=== PATIENT | male | born 1955 | race Caucasian/White ===

== ENCOUNTER → 2016-08-10 | Outpatient (CLI) | payer BC ==
[~2016-08-10] MED LIST: ADVAIR 2501 DISK W/D PO; ALBUTEROL17 GM INH; ALBUTEROL17 GM NEB; ATIVAN PO; CELEXA PO; DUONEB 2.5-0.5 M3 ML NEB; FAMOTIDINE PO; FLEXERIL10 MG PO; LEVAQUIN PO; LORTAB 10-5001 EACH PO; NAPROSYN500 MG PO; PREDNISONE PO; PREDNISONE50 MG PO; SPIRIVA18 MCG INFIL; SPIRIVA18 MCG INH
--- NOTE | ~2016-08-10 | EKG ---
PATIENT: BOGDAN LINDA UNIT #: [id number] Ventricular Rate: 72 BPM Atrial Rate: 72 BPM P-R Interval: 176 ms QRS Duration: 100 ms Q-T Interval: 410 ms QTC Calculation(Bezet): 448 ms P [place]: -2 degrees Calculated R [place]: -25 degrees Calculated T [place]: 16 degrees Diagnosis Line: Normal sinus rhythm Diagnosis Line: Normal ECG Diagnosis Line: When compared with ECG of 28-JUN-2011 11:13, Diagnosis Line: No significant change was found Diagnosis Line: Confirmed by OLIVIA CAMARGO MD ([id number]) on Diagnosis Line: 08/10/2016 10:43:21 PM INTERPRETING MD: [id number]
[2016-08-10 10:23] LABS: BASOPHIL% 0.4 % (0-2.5); EOSINOPHIL# 0.2 X10e3 (0-0.7); EOSINOPHIL% 2.5 % (0.0-7.0); HEMATOCRIT 42.5 % (38.0-50.0); HEMOGLOBIN 14.5 gm/dL (13.0-16.0); LYMPHOCYTE# 2.6 X10e3 (1.0-3.5); LYMPHOCYTE% 33.4 % (17.0-45.0); MEAN CELL VOLUME 85.7 FL (83-96); MEAN CORPUSCULAR HEMOGLOBIN 29.2 PG (28-34); MEAN CORPUSCULAR HGB CONC 34.1 g/dL (30-36); MEAN PLATELET VOLUME 9.6 FL (6.5-11.5); MONOCYTE# 0.5 X10e3 (0-1.0); MONOCYTE% 6.8 % (3.0-12.0); NEUTROPHIL# 4.4 X10e3 (1.5-7.1); NEUTROPHIL% 56.9 % (40-75); PLATELET COUNT 198 X10e3 (140-420); RED BLOOD COUNT 4.96 X10e (3.90-5.60); WHITE BLOOD COUNT 7.8 X10e3 (4.0-10.5)
[2016-08-10 10:24] LABS: DIFF IND NO
[2016-08-10 11:24] LABS: BUN/CREATININE RATIO 23.33; CALCIUM SERUM 9.3 mg/dL (8.4-10.2); CREATININE SERUM 0.6 mg/dL (0.6-1.4); GLOM FILT RATE Estimated 110.1 mL/min (>60); POTASSIUM 4.2 mmol/L (3.5-5.1)
== END | disposition home or self-care (01) ==
LOC: CLAB 09:36 → CEKG 09:36
PROVIDERS: Urology
DX: N43.3 Hydrocele, unspecified (principal)
CPT/HCPCS: 36415; 80048; 85025; 93005